=== PATIENT | female | born 1950 | race Caucasian/White ===

== ENCOUNTER 2017-02-09 21:25 | Inpatient (IN) | payer MEDICARE ==
--- NOTE | 2017-02-09 21:43 | ED Physician Chart ---
Chief Complaint/HPI - Patient Information Date Seen:: 02/09/17 Time Seen:: 21:30 Chief Complaint:: EtOH intoxication History of Present Illness:: 66-year-old female brought in by paramedics after a friend called 911 because she was concerned about patient's acute, moderate, alcohol intoxication started about 1 hour prior to arrival to the ER. Patient drank almost a fifth of vodka over the course of the day. Patient has associated slight altered mental status due to the alcohol intoxication. She is alert and oriented 3. Allergies:: Allergies Allergy/AdvReac Type Severity Reaction Status Date / Time No Known Allergies Allergy Verified 02/09/17 21:33 Vitals:: Vital Signs - 8 hr 02/09/17 21:25 Temp 97.8 F HR 80 RR 20 BP 146/77 O2 Sat % 95 Historian:: Patient Review:: Nurse's Note Reviewed, EMS run form Reviewed Review of Systems - Review of Systems Other: Complete system review otherwise unremarkable except as noted in history of present illness. Past Medical History - Past Medical History Past Medical History: HTN Family History: None Social History: Non Smoker, Alcohol, No Drug Use, Employed Surgical History: None Psychiatricy History: Depression Medication: Reviewed Family Medical History - Family Member Mother History Unknown: Yes Physical Exam - Physical Examination Other:: INITIAL VITAL SIGNS: Reviewed by me GENERAL: Alert and interactive. No acute distress. Patient is alert and oriented but seems to be under the influence of alcohol. HEAD: Head is normocephalic and atraumatic EYES: EOMI. PERRL. No scleral icterus. No conjunctival injection ENT: Moist mucous membranes. NECK: Supple. No masses. Full range of motion RESPIRATORY: No tachypnea. Clear breath sounds bilaterally. No wheezing, rales, or rhonchi CV: Regular rate and rhythm. No murmurs, rubs, or gallops ABDOMEN: Soft, non-distended, non-tender. No guarding. No rebound. No masses. EXTREMITIES: No deformity. No cyanosis. No edema. SKIN: Warm and dry. No obvious rashes. NEUROLOGIC: Alert and oriented. Face is symmetric. Speech is normal. Moves all extremities equally. Motor and sensory distally intact. Labs/Radiology/EKG Results - Lab Results Results: Lab Results 02/09/17 02/09/17 Range/Units 21:56 21:56 WBC 6.7 (4.8-10.8) Th/cmm RBC 4.01 (3.80-5.20) Mil/cmm Hgb 12.1 (11.7-16.1) gm/dL Hct 35.4 (35.0-45.0) % MCV 88.4 (81-100) fl MCH 30.2 (27.0-31.0) pg MCHC Differential 34.2 (28.0-36.0) pg RDW 14.2 (11.5-20.0) % Plt Count 230 (150-400) Th/cmm MPV 7.6 fl Neutrophils % 72.5 (40.0-80.0) % Lymphocytes % 20.3 (20.0-50.0) % Monocytes % 5.3 (2.0-10.0) % Eosinophils % 1.4 (0.0-5.0) % Basophils % 0.5 (0.0-2.0) % Sodium 137 (136-145) mEq/L Potassium 4.3 (3.5-5.1) mEq/L Chloride 100 (98-107) mEq/L Carbon Dioxide 29.6 (21.0-31.0) mEq/L Anion Gap 11.7 (7.0-16.0) BUN 14 (7-25) mg/dL Creatinine 0.7 (0.6-1.2) mg/dL Est GFR ( Amer) > 60.0 (>90) ml/min Est GFR (Non-Af Amer) > 60.0 ml/min BUN/Creatinine Ratio 20.0 Glucose 107 H (70-105) mg/dL Calcium 8.9 (8.6-10.3) mg/dL ED Septic Shock - . Is Septic Shock (SBP<90, OR Lactate>4 mmol\L) present?: No - <6hrs of presentation: Vital Signs: Vital Signs - 8 hr 02/09/17 21:25 Temp 97.8 F HR 80 RR 20 BP 146/77 O2 Sat % 95 Reassessment (Disposition) - Reassessment Reassessment:: Patient arrived with acute alcohol intoxication. Labs are essentially unremarkable. Hydrated with IV fluids. Also gave Zofran as prophylaxis for antiemetic. Patient was noted to be ambulating to and from the restroom without any gait abnormality. Stated that she wished to be discharged. Recommended follow up PCP 1-2 days. Return to ER precautions given. Patient understands and agrees with the plan. Reassessment Condition:: Improved - Diagnosis Diagnosis:: Acute alcohol intoxication - Aftercare/Follow up Instructions Aftercare/Follow-Up Instructions:: Counseled pt regarding lab results/diagnosis & need follow up, Refer to Discharge Instructions - Patient Disposition Discharge/Transfer:: Home Time:: 23:56 Condition at Disposition:: Improved ED Discharge Plan - Patient Disposition Admit/Discharge/Transfer: PT DISCHARGED HOME Condition at Disposition: Improved Instructions: Alcohol Intoxication
[2017-02-09] MEDS ORDERED: Sodium Chloride 0.9% 1,000 ML IV ONE (21:45)
[2017-02-09 22:03] LABS: % BASOPHILS 0.5 % (0.0-2.0); % EOSINOPHILS 1.4 % (0.0-5.0); % LYMPHOCYTES 20.3 % (20.0-50.0); % MONOCYTES 5.3 % (2.0-10.0); % NEUTROPHILS 72.5 % (40.0-80.0); HEMATOCRIT 35.4 % (35.0-45.0); HEMOGLOBIN 12.1 gm/dL (11.7-16.1); MEAN CELL VOLUME 88.4 fl (81-100); MEAN CORPUSCULAR HEMOGLOBIN 30.2 pg (27.0-31.0); MEAN CORPUSCULAR HGB CONC 34.2 pg (28.0-36.0); MEAN PLATELET VOLUME 7.6 fl; NEUTROPHILE ABSOLUTE 4.8 Th/cmm (1.8-8.0); PLATELET COUNT 230 Th/cmm (150-400); RED BLOOD COUNT 4.01 Mil/cmm (3.80-5.20); RED CELL DISTRIBUTION WIDTH 14.2 % (11.5-20.0); WHITE BLOOD COUNT 6.7 Th/cmm (4.8-10.8)
[2017-02-09 22:17] LABS: ANION GAP 11.7 (7.0-16.0); BUN - UREA NITROGEN 14 mg/dL (7-25); CALCIUM SERUM 8.9 mg/dL (8.6-10.3); CARBON DIOXIDE 29.6 mEq/L (21.0-31.0); CHLORIDE 100 mEq/L (98-107); CREATININE - SERUM 0.7 mg/dL (0.6-1.2); GLUCOSE 107 mg/dL (70-105); POTASSIUM SERUM 4.3 mEq/L (3.5-5.1); SODIUM SERUM 137 mEq/L (136-145)
[2017-02-09] MEDS ORDERED: D5 IV ONE (23:47)
[2017-02-09] MEDS ORDERED: NS IV ONE (23:47)
[2017-02-10 07:49] LABS: % EOSINOPHILS 3.8 % (0.0-5.0); % LYMPHOCYTES 20.7 % (20.0-50.0); % MONOCYTES 3.2 % (2.0-10.0); % NEUTROPHILS 72.3 % (40.0-80.0); HEMATOCRIT 33.4 % (35.0-45.0); HEMOGLOBIN 11.4 gm/dL (11.7-16.1); MEAN CORPUSCULAR HEMOGLOBIN 30.8 pg (27.0-31.0); MEAN CORPUSCULAR HGB CONC 34.2 pg (28.0-36.0); MEAN PLATELET VOLUME 8.1 fl; NEUTROPHILE ABSOLUTE 5.1 Th/cmm (1.8-8.0); PLATELET COUNT 206 Th/cmm (150-400); RED BLOOD COUNT 3.71 Mil/cmm (3.80-5.20); RED CELL DISTRIBUTION WIDTH 14.7 % (11.5-20.0); WHITE BLOOD COUNT 7.1 Th/cmm (4.8-10.8)
[2017-02-10 08:17] LABS: ALB/GLOB RATIO 1.4 (1.0-1.8); ALKALINE PHOSPHATASE 77 U/L (34-104); ANION GAP 13.2 (7.0-16.0); BILIRUBIN,TOTAL 0.5 mg/dL (0.3-1.0); BUN - UREA NITROGEN 12 mg/dL (7-25); BUN/CREATININE RATIO 17.1; CALCIUM SERUM 8.4 mg/dL (8.6-10.3); CHLORIDE 102 mEq/L (98-107); CREATININE - SERUM 0.7 mg/dL (0.6-1.2); GLUCOSE 103 mg/dL (70-105); POTASSIUM SERUM 4.2 mEq/L (3.5-5.1); SGOT 31 U/L (13-39); SGPT/ALT 17 U/L (7-52); SODIUM SERUM 140 mEq/L (136-145)
[2017-02-10] MEDS ORDERED: Multivitamin Inj 10 ML, Thiamine HCL 100 MG, Magnesium Sulfate 2 GM, Folic Acid 1 MG in... IV ONE (09:00)
[2017-02-10] MEDS ORDERED: Multivitamin Inj 10 ML, Thiamine HCL 100 MG, Magnesium Sulfate 2 GM, Folic Acid 1 MG in... IV SCH (09:31)
[2017-02-10] MEDS ORDERED: VTE Chemical Prophylaxis Screen/Admission MC PRN (12:45)
--- NOTE | 2017-02-10 13:09 | History & Physical ---
ADMIT DATE: 02/10/2017 CHIEF COMPLAINT: Change in mental status. HISTORY OF PRESENT ILLNESS: This is the case of a 66-year-old white female who was brought by paramedics ER via 911 because a friend called 911 secondary to the patient was drunk and not responding well. According to the information, the patient drunk vodka over the course of the day and the patient was ____ altered mental status. Reason why paramedics were called and the patient was brought to Emergency Room. The moment the patient arrived to Emergency Room, labs were normal, the patient was ambulating to the restroom without any gait abnormality. The patient referred that she wants to go home, but after talking with Emergency Room doctor, the patient agrees to stay for observation. The patient was transferred to med/surg to continue treatment. PAST MEDICAL HISTORY: No information available. PAST SURGICAL HISTORY: No information available. SOCIAL HISTORY: Daily patient drinks, but no more information was available. REVIEW OF SYSTEMS: Information was not obtained secondary to the patient's mental condition. PHYSICAL EXAMINATION: GENERAL: Does reveal a fairly nourished and developed white female, responding only to pain. HEENT: Head is normocephalic. Pupils not responding to light and ____. Nose, no evidence of nasal obstruction. Ears: No evidence of any discharge. Mouth: Fairly clean. LUNGS: Bilateral air entry. No wheezing, no crackles. HEART: Regular rhythm. ABDOMEN: Soft, nontender, bowel sound present. EXTREMITIES: No edema. DIAGNOSIS: Acute loss of consciousness. PLAN: 1. The patient will be sent to ICU. 2. Head CT stat. 3. Ammonia level. 4. CT scan stat and Accu-Chek q. 2 hours. 5. Banana bag. 6. Regular diet ____. JOB# [id number]
[2017-02-10 14:11] LABS: AMPHETAMINE URINE NEGATIVE (NEGATIVE); BARBITURATES URINE POSITIVE (NEGATIVE); METHADONE URINE NEGATIVE (NEGATIVE)
[2017-02-11 05:13] LABS: % BASOPHILS 0.4 % (0.0-2.0); % EOSINOPHILS 4.7 % (0.0-5.0); % LYMPHOCYTES 37.8 % (20.0-50.0); % MONOCYTES 7.3 % (2.0-10.0); % NEUTROPHILS 49.8 % (40.0-80.0); HEMATOCRIT 30.6 % (35.0-45.0); HEMOGLOBIN 10.4 gm/dL (11.7-16.1); MEAN CELL VOLUME 88.8 fl (81-100); MEAN CORPUSCULAR HEMOGLOBIN 30.1 pg (27.0-31.0); MEAN CORPUSCULAR HGB CONC 33.9 pg (28.0-36.0); MEAN PLATELET VOLUME 8.3 fl; NEUTROPHILE ABSOLUTE 2.5 Th/cmm (1.8-8.0); PLATELET COUNT 173 Th/cmm (150-400); RED BLOOD COUNT 3.45 Mil/cmm (3.80-5.20); RED CELL DISTRIBUTION WIDTH 14.4 % (11.5-20.0)
[2017-02-11 05:32] LABS: ALB/GLOB RATIO 1.2 (1.0-1.8); ALKALINE PHOSPHATASE 67 U/L (34-104); ANION GAP 6.3 (7.0-16.0); BILIRUBIN,TOTAL 0.4 mg/dL (0.3-1.0); BUN - UREA NITROGEN 12 mg/dL (7-25); CALCIUM SERUM 8.5 mg/dL (8.6-10.3); CARBON DIOXIDE 31.5 mEq/L (21.0-31.0); CHLORIDE 103 mEq/L (98-107); CREATININE - SERUM 0.6 mg/dL (0.6-1.2); GLUCOSE 89 mg/dL (70-105); POTASSIUM SERUM 3.8 mEq/L (3.5-5.1); SGOT 26 U/L (13-39); SGPT/ALT 15 U/L (7-52); SODIUM SERUM 137 mEq/L (136-145)
--- NOTE | 2017-02-11 09:02 | General Progress Note ---
Subjective - Review of Systems Service Date: 02/11/17 Subjective: Patient is confused Objective - Results Result Diagrams: 02/11/17 04:33 02/11/17 04:33 Recent Labs: Laboratory Last Values WBC 5.0 Th/cmm (4.8-10.8) D 02/11/17 04:33 RBC 3.45 Mil/cmm (3.80-5.20) L 02/11/17 04:33 Hgb 10.4 gm/dL (11.7-16.1) L 02/11/17 04:33 Hct 30.6 % (35.0-45.0) L 02/11/17 04:33 MCV 88.8 fl (81-100) 02/11/17 04:33 MCH 30.1 pg (27.0-31.0) 02/11/17 04:33 MCHC Differential 33.9 pg (28.0-36.0) 02/11/17 04:33 RDW 14.4 % (11.5-20.0) 02/11/17 04:33 Plt Count 173 Th/cmm (150-400) 02/11/17 04:33 MPV 8.3 fl 02/11/17 04:33 Neutrophils % 49.8 % (40.0-80.0) 02/11/17 04:33 Lymphocytes % 37.8 % (20.0-50.0) 02/11/17 04:33 Monocytes % 7.3 % (2.0-10.0) 02/11/17 04:33 Eosinophils % 4.7 % (0.0-5.0) 02/11/17 04:33 Basophils % 0.4 % (0.0-2.0) 02/11/17 04:33 Sodium 137 mEq/L (136-145) 02/11/17 04:33 Potassium 3.8 mEq/L (3.5-5.1) 02/11/17 04:33 Chloride 103 mEq/L (98-107) 02/11/17 04:33 Carbon Dioxide 31.5 mEq/L (21.0-31.0) H 02/11/17 04:33 Anion Gap 6.3 (7.0-16.0) L 02/11/17 04:33 BUN 12 mg/dL (7-25) 02/11/17 04:33 Creatinine 0.6 mg/dL (0.6-1.2) 02/11/17 04:33 Est GFR ( Amer) > 60.0 ml/min (>90) 02/11/17 04:33 Est GFR (Non-Af Amer) > 60.0 ml/min 02/11/17 04:33 BUN/Creatinine Ratio 20.0 02/11/17 04:33 Glucose 89 mg/dL (70-105) 02/11/17 04:33 POC Glucose 82 MG/DL (70 - 105) 02/11/17 08:21 Calcium 8.5 mg/dL (8.6-10.3) L 02/11/17 04:33 Total Bilirubin 0.4 mg/dL (0.3-1.0) 02/11/17 04:33 AST 26 U/L (13-39) 02/11/17 04:33 ALT 15 U/L (7-52) 02/11/17 04:33 Alkaline Phosphatase 67 U/L (34-104) 02/11/17 04:33 Ammonia 40 umol/L (16-53) 02/10/17 09:35 Total Protein 5.6 gm/dL (6.0-8.3) L 02/11/17 04:33 Albumin 3.1 gm/dL (3.7-5.3) L 02/11/17 04:33 Globulin 2.5 gm/dL 02/11/17 04:33 Albumin/Globulin Ratio 1.2 (1.0-1.8) 02/11/17 04:33 TSH 1.94 uIU/ml (0.34-5.60) 02/11/17 04:33 Urine Opiates Screen NEGATIVE (NEGATIVE) 02/10/17 13:28 Urine Methadone Screen NEGATIVE (NEGATIVE) 02/10/17 13:28 Ur Barbiturates Screen POSITIVE (NEGATIVE) H 02/10/17 13:28 Ur Tricyclics Screen NEGATIVE (NEGATIVE) 02/10/17 13:28 Ur Phencyclidine Scrn NEGATIVE (NEGATIVE) 02/10/17 13:28 Amphetamines Screen NEGATIVE (NEGATIVE) 02/10/17 13:28 U Methamphetamines Scrn NEGATIVE (NEGATIVE) 02/10/17 13:28 U Benzodiazepines Scrn POSITIVE (NEGATIVE) H 02/10/17 13:28 U Cocaine Metab Screen NEGATIVE (NEGATIVE) 02/10/17 13:28 U Cannabinoids Screen NEGATIVE (NEGATIVE) 02/10/17 13:28 Ethyl Alcohol < 10 mg/dL (0-10) 02/10/17 07:25 - Physical Exam Vitals and I&O: Vital Signs Temp 96.9 F 02/11/17 08:00 Pulse 53 02/11/17 08:00 Resp 17 02/11/17 08:00 BP 117/67 02/11/17 08:00 Pulse Ox 95 02/11/17 08:00 Intake & Output 02/10/17 02/11/17 02/11/17 18:59 06:59 18:59 Intake Total 1115.2 Output Total 250 Balance -250 1115.2 Intake: Intake, IV Amount 1015.2 Oral 100 Output: Urine 250 Other: # Voids 1 # Bowel Movements 1 Active Medications: Current Medications Acetaminophen (Tylenol) 650 mg PO Q6H PRN PRN Reason: Pain or Fever >101 Stop: 04/11/17 09:42 Last Admin: 02/10/17 21:13 Dose: 650 mg Heparin Sodium (Porcine) (Heparin) 5,000 units SUBQ Q12HR DOC Stop: 04/11/17 20:59 Last Admin: 02/11/17 08:16 Dose: 5,000 units Insulin Aspart (Novolog Insulin Sliding Scale) 0 units SUBQ ACHS DOC PRN Reason: Protocol Stop: 04/12/17 11:29 Lorazepam (Ativan) 1 mg IVP Q8HR PRN; Protocol PRN Reason: Anxiety Stop: 04/11/17 07:23 Miscellaneous (Vte Chemical Prophylaxis Screen/ Admission) 1 ea MC PRN PRN PRN Reason: PROTOCOL Stop: 04/11/17 12:44 Ondansetron HCl (Zofran) 4 mg IV Q6H PRN PRN Reason: Nausea / Vomiting Stop: 04/11/17 09:42 General: Other (Sleeping but arousable, is confused, not oriented ) HEENT: Atraumatic, Other (With CPAP) Neck: Supple Cardiovascular: Regular rate Lungs: Clear to auscultation Abdomen: Bowel sounds, Soft Extremities: Other (No edema) Neurological: Other (Non ambulatory at this moment) Skin: Other (Warm and dry) Psych/Mental Status: Other (Sleeping but arousable) Assessment/Plan - Assessment Assessment: Patient is hard to wake up, on CPAP, Positive for barbituric and amphetamines, Head CT shows atrophy, no acute illness. Dx: Acute respiratory failure secondary to drugs intoxication. - Plan Plan: Patient in CPAP, consult with Pulmonoloogy is requested. Will continue to monitor.
[2017-02-11] MEDS: D5-0.9%NS 1,000 ML IV SCH (09:16)
[2017-02-11 10:27] LABS: ABG SOURCE Arterial; ALLEN TEST Positive; BE(B) 7.5 mEq/L (-3.0-3.0); HCO3 30.7 mEq/L (20.0-26.0); pH 7.41 (7.35-7.45)
[2017-02-11 10:28] LABS: FIO2 32
--- NOTE | 2017-02-11 11:09 | Diagnostic Imaging Report ---
CT scan of the brain without intravenous contrast HISTORY: Stroke, CVA Total DLP equals 585 CTDI equals 34.6 Axial sections were obtained from the base of the skull to the vertex. There is prominence/enlargement of the ventricular system size. Associated enlargement of cerebral sulci and subarachnoid cisterns. Findings are consistent with changes of generalized cerebral atrophy. No acute parenchymal abnormalities. No acute cerebral hemorrhage. Hypodensity is seen within the supratentorial white matter regions without mass effect. The findings may be associated with chronic small vessel ischemic disease. No extra-axial masses or abnormal fluid collections. Mild mucosal thickening noted within the sphenoid sinuses. IMPRESSION: 1. No acute abnormalities 2. Cerebral atrophy 3. Supratentorial white matter changes that may reflect chronic small vessel ischemic disease
--- NOTE | 2017-02-11 11:09 | Diagnostic Imaging Report ---
Portable chest x-ray HISTORY: Shortness of breath The heart appears enlarged. Atherosclerotic calcification seen in the aorta. No acute focal pulmonary processes. IMPRESSION: 1. No acute focal pulmonary processes 2. Cardiomegaly with atherosclerotic vascular changes
[2017-02-11] MEDS: INSULIN ASPART SLIDING SCALE 100 UNITS/ML UNIT SUBQ SCH ×3 (11:26→22:54)
[2017-02-11] MEDS: Thiamine 100 mg/mL 2mL Vial IM SCH (13:17)
--- NOTE | 2017-02-11 13:46 | Admit Criteria Form ---
Admit Criteria Forms - Admit Criteria Diagnosis: SUBSTANCE ABUSE Clinical Indications for Admission to Inpatient Care (Place 'X' for any and all applicable criteria): Admission is indicated due to ANY ONE of the following(1)(2)(3)(4)(5): [ ]I. Delirium due to alcohol or sedative A withdrawal B ( Also use Delirium Criteria as appropriate)1,6,7 [ ]II. Alcohol or sedative withdrawal with high-risk indicator as manifested by ALL of the following1,3,6,7 [ ]a) Signs of withdrawal as indicated by ANY ONE of the following: [ ]i) Heart rate greater than 100 beats per minute [ ]ii) Nausea or vomiting [ ]iii) Other physical signs of alcohol or sedative withdrawal [ ]iv) Tremor [ ](v) Increased perspiration [ ]b) Elevated risk due to a historical or comorbid factor as indicated by ANY ONE of the following: [ ]i) History of delirium due to alcohol or sedative withdrawal [ ]ii) History of repetitive seizures due to alcohol or sedative withdrawal C [ ]iii) Intrinsic seizure disorder (epilepsy) [ ]iv) [ ]v) Comorbid medical condition that can be dangerously destabilized by alcohol or sedative withdrawal (eg, severe cardiac disease) [ ]III. Severe alcohol or sedative withdrawal that is unmanageable at lower level of care, as manifested by ALL of the following1,3,6,7 [ ]a) Marked signs of withdrawal as indicated by ANY ONE of the following: [ ]i) Heart rate greater than 120 beats per minute [ ]ii) Vomiting [ ]iii) Grossly visible tremor [ ]iv) Profuse perspiration [ ]v) Temperature greater than 38.3 degrees C (101 degrees F) [ ]vi) Other marked physical signs of alcohol or sedative withdrawal [ ]b) Signs of withdrawal which require inpatient treatment as indicated by ANY ONE of the following: [ ]i) Inadequate response to pharmacotherapy in emergency department or other appropriate lower level of care [ ]ii) Lower level of care not feasible or appropriate (eg, unavailable or inappropriate to patient condition or treatment history) [ ]IV. Severely complicated opioid withdrawal that requires [id number] care as manifested by ALL of the following 1,4,7,11 [ ]a) Vomiting or diarrhea due to opioid withdrawal [ ]b) Marked dehydration or electrolyte abnormality that cannot be corrected (to near normal) in an emergency department or other ambulatory setting (eg, serum K<2.5 mEq/L , serum Na <130 mEq/L [X ]V. Acute toxicity or instability from substance use requiring inpatient care (eg, altered mental status, respiratory depression) that has had inadequate response to, or is judged inappropriate for, treatment at lower level of care (eg, emergency department, observation care) [ ]. Other inpatient medical or psychiatric care is needed due to risk or comorbidity as indicated by ALL of the following(18): [ ]a) Treatment is needed because of patient risk due to ANY ONE of the following: [ ]i) Medical condition (eg, severe cardiac disease) that requires 24-hour monitoring and treatment due to danger of destabilization by alcohol or sedative withdrawal is present [ ]ii) Imminent danger to self is present due to ANY ONE of the following(19)(20)(21): [ ]1) Imminent risk for recurrence of Suicide attempt or act of serious Harm to self is present as indicated by ALL of the following: [ ]A. There has been very recent Suicide attempt or deliberate act of serious Harm to self. [ ]B. There has not been Sufficient relief of the factors that precipitated the attempt or act. [ ]2) Current plan for suicide or serious Harm to self is present. [ ]3) Command auditory hallucinations for suicide or serious Harm to self are present. [ ]4) Patient has persistent Thoughts of suicide or serious Harm to self that cannot be adequately monitored at lower level of care due to ANY ONE of the following[E]: [ ]A. Insufficient behavioral care is available to meet patient needs (such as required provider or lower level facility is not available). [ ]B. Patient characteristics such as high impulsivity or unreliability are present. [ ]C. Environment does not support recovery. [ ]D. Ready access to lethal means [ ]iii) Imminent danger to others is present due to ANY ONE of the following(19)(23)(24): [ ]1) Imminent risk for recurrence of attempt to seriously Harm another is present as indicated by ALL of the following: [ ]A. There has been very recent attempt to seriously Harm another. [ ]B. There has not been Sufficient relief of factors that precipitated the attempt or act. [ ]2) Current plan for homicide or serious Harm to another is present. [ ]3) Command auditory hallucinations or paranoid delusions contributing to risk for homicide or serious Harm to another are present. [ ]4) Patient has persistent thoughts of homicide or serious Harm to another that cannot be adequately monitored at lower level of care because of ANY ONE of the following[E]: [ ]A. Insufficient behavioral care is available to meet patient needs (such as required provider or lower level facility is not available). [ ]B. High impulsivity or unreliability is present. [ ]C. Environment does not support recovery. [ ]D. Ready access to lethal means [ ]iv) Severe dysfunction in daily living related to substance use disorder as indicated by ANY ONE of the following(33): [ ]a) Extreme deterioration in social interactions (eg , threatening behaviors with little or no provocation) [ ]b) Complete withdrawal from all social interactions [ ]c) Complete neglect of self-care with associated impairment in physical status [ ]d) Extreme disruption in vegetative function (eg, life-sustaining functions such as eating) [ ]e) Complete inability to maintain any appropriate aspect of personal responsibility in any adult roles (eg, occupational, parental ) [ ]v) Other emotional, behavioral, or cognitive symptoms of sufficient severity to preclude ability to engage in recovery without 24-hour monitoring and treatment are present. [ ]vi) Patient requires monitoring due to substance use in combination with medical, psychiatric, or environmental factors that prevent adequate management at lower level of care as indicated by ALL of the following: [ ]1) Significant substance use effects, medical conditions, or psychiatric comorbidities are present as indicated by ANY ONE of the following [ ]A. Substance toxicity or withdrawal requires medical monitoring. [ ]B. Medical comorbidity requires medical monitoring for destabilization due to alcohol or sedative withdrawal. [ ]C. Emotional, behavioral, or cognitive symptoms of sufficient severity to limit or preclude ability to engage in treatment are present. [ ]2) Conditions, barriers, or environmental factors preventing treatment at lower level of care are present as indicated by ANY ONE of the following: [ ]A. Psychiatric comorbidity or opposition to treatment requires 24-hour setting to ensure adherence with medical treatment or adequate motivating interventions. [ ]B. Severe behavioral problems (eg, escalating relapse behaviors, acute psychiatric or substance use crisis, inability to recognize signs and symptoms of relapse ) require 24-hour setting for relapse prevention.[F] [ ]C. Living environment outside of 24-hour setting prevents recovery (eg, abuse, victimization, patient inability to cope). [ ]b Treatment situation and needs are appropriate for inpatient level ( instead of using lower level of care) as indicated by ANY ONE of the following( 25)(26)(27): [ ]i) Patient is unwilling to participate voluntarily and requires treatment (eg, legal commitment) in involuntary unit.(23) [ ]ii) Voluntary treatment at lower level is not feasible (eg, lower level care unavailable or inappropriate for patient condition). [ ]iii) Physical restraint, seclusion, or other involuntary control is needed (eg, actively violent patient for whom treatment in an involuntary unit is deemed necessary in accord with applicable medical and legal criteria).(23) [ ]iv) [id number] medical or nursing care to address symptoms and initiate interventions is required; specific need is identified. Extended stay beyond goal length of stay may be needed for: [ ]a) Onset of delirium [ ]b) Recurrent seizures [ ]c) Persistent severe alcohol or sedative withdrawal [ ]d) Persistent dangerous behavior The original [facility] content created by [email or web address] has been revised. The portions of the content which have been revised are identified through the use of italic text or in bold, and [facility] has neither reviewed nor approved the modified material. All other unmodified content is copyright [employer]. Please see references footnoted in the original [employer] [facility] edition 2016 Admit Criteria Met?: Yes
[2017-02-11] MEDS: Albuterol/Ipratropium Neb 3 ML AERS HHN SCH (19:04)
[2017-02-12] MEDS: Albuterol/Ipratropium Neb 3 ML AERS HHN SCH ×5 (00:58→19:13)
[2017-02-12] MEDS: D5-0.9%NS 1,000 ML IV SCH ×2 (03:21→18:53)
[2017-02-12] MEDS: INSULIN ASPART SLIDING SCALE 100 UNITS/ML UNIT SUBQ SCH ×4 (06:53→21:36)
[2017-02-12 07:16] LABS: % BASOPHILS 0.1 % (0.0-2.0); % EOSINOPHILS 4.4 % (0.0-5.0); % LYMPHOCYTES 21.8 % (20.0-50.0); % MONOCYTES 5.4 % (2.0-10.0); % NEUTROPHILS 68.3 % (40.0-80.0); HEMOGLOBIN 10.4 gm/dL (11.7-16.1); MEAN CELL VOLUME 90.3 fl (81-100); MEAN CORPUSCULAR HEMOGLOBIN 30.2 pg (27.0-31.0); MEAN CORPUSCULAR HGB CONC 33.4 pg (28.0-36.0); MEAN PLATELET VOLUME 8.3 fl; NEUTROPHILE ABSOLUTE 3.2 Th/cmm (1.8-8.0); PLATELET COUNT 181 Th/cmm (150-400); RED BLOOD COUNT 3.44 Mil/cmm (3.80-5.20); RED CELL DISTRIBUTION WIDTH 14.7 % (11.5-20.0); WHITE BLOOD COUNT 4.6 Th/cmm (4.8-10.8)
[2017-02-12 07:32] LABS: ALB/GLOB RATIO 1.3 (1.0-1.8); ALKALINE PHOSPHATASE 65 U/L (34-104); ANION GAP 10.5 (7.0-16.0); BILIRUBIN,TOTAL 0.4 mg/dL (0.3-1.0); BUN - UREA NITROGEN 8 mg/dL (7-25); BUN/CREATININE RATIO 13.3; CALCIUM SERUM 8.7 mg/dL (8.6-10.3); CARBON DIOXIDE 30.1 mEq/L (21.0-31.0); CHLORIDE 102 mEq/L (98-107); CREATININE - SERUM 0.6 mg/dL (0.6-1.2); GLUCOSE 114 mg/dL (70-105); POTASSIUM SERUM 3.6 mEq/L (3.5-5.1); SGOT 28 U/L (13-39); SGPT/ALT 15 U/L (7-52); SODIUM SERUM 139 mEq/L (136-145)
--- NOTE | 2017-02-12 09:10 | General Progress Note ---
Subjective - Review of Systems Service Date: 02/12/17 Subjective: Patient is confused Objective - Results Result Diagrams: 02/12/17 06:40 02/12/17 06:40 Recent Labs: Laboratory Last Values WBC 4.6 Th/cmm (4.8-10.8) L 02/12/17 06:40 RBC 3.44 Mil/cmm (3.80-5.20) L 02/12/17 06:40 Hgb 10.4 gm/dL (11.7-16.1) L 02/12/17 06:40 Hct 31.0 % (35.0-45.0) L 02/12/17 06:40 MCV 90.3 fl (81-100) 02/12/17 06:40 MCH 30.2 pg (27.0-31.0) 02/12/17 06:40 MCHC Differential 33.4 pg (28.0-36.0) 02/12/17 06:40 RDW 14.7 % (11.5-20.0) 02/12/17 06:40 Plt Count 181 Th/cmm (150-400) 02/12/17 06:40 MPV 8.3 fl 02/12/17 06:40 Neutrophils % 68.3 % (40.0-80.0) 02/12/17 06:40 Lymphocytes % 21.8 % (20.0-50.0) 02/12/17 06:40 Monocytes % 5.4 % (2.0-10.0) 02/12/17 06:40 Eosinophils % 4.4 % (0.0-5.0) 02/12/17 06:40 Basophils % 0.1 % (0.0-2.0) 02/12/17 06:40 Specimen Source Arterial 02/11/17 10:04 Sample Site Left Radial 02/11/17 10:04 pH 7.41 (7.35-7.45) 02/11/17 10:04 pCO2 53.0 mmHg (35.0-45.0) H 02/11/17 10:04 pO2 63.0 mmHg (80.0-100.0) L 02/11/17 10:04 HCO3 30.7 mEq/L (20.0-26.0) H 02/11/17 10:04 Base Excess 7.5 mEq/L (-3.0-3.0) H 02/11/17 10:04 O2 Saturation 92.0 % (92.0-100.0) 02/11/17 10:04 Ismael Test Positive 02/11/17 10:04 Vent Rate NA 02/11/17 10:04 Inspired O2 32 02/11/17 10:04 Tidal Volume NA 02/11/17 10:04 PEEP NA 02/11/17 10:04 Pressure (ins/psv/peep) NA 02/11/17 10:04 Critical Value LZHANG 02/11/17 10:04 Sodium 139 mEq/L (136-145) 02/12/17 06:40 Potassium 3.6 mEq/L (3.5-5.1) 02/12/17 06:40 Chloride 102 mEq/L (98-107) 02/12/17 06:40 Carbon Dioxide 30.1 mEq/L (21.0-31.0) 02/12/17 06:40 Anion Gap 10.5 (7.0-16.0) 02/12/17 06:40 BUN 8 mg/dL (7-25) 02/12/17 06:40 Creatinine 0.6 mg/dL (0.6-1.2) 02/12/17 06:40 Est GFR ( Amer) > 60.0 ml/min (>90) 02/12/17 06:40 Est GFR (Non-Af Amer) > 60.0 ml/min 02/12/17 06:40 BUN/Creatinine Ratio 13.3 02/12/17 06:40 Glucose 114 mg/dL (70-105) H 02/12/17 06:40 POC Glucose 113 MG/DL (70 - 105) H 02/12/17 06:07 Calcium 8.7 mg/dL (8.6-10.3) 02/12/17 06:40 Total Bilirubin 0.4 mg/dL (0.3-1.0) 02/12/17 06:40 AST 28 U/L (13-39) 02/12/17 06:40 ALT 15 U/L (7-52) 02/12/17 06:40 Alkaline Phosphatase 65 U/L (34-104) 02/12/17 06:40 Ammonia 40 umol/L (16-53) 02/10/17 09:35 Total Protein 5.9 gm/dL (6.0-8.3) L 02/12/17 06:40 Albumin 3.3 gm/dL (3.7-5.3) L 02/12/17 06:40 Globulin 2.6 gm/dL 02/12/17 06:40 Albumin/Globulin Ratio 1.3 (1.0-1.8) 02/12/17 06:40 TSH 1.94 uIU/ml (0.34-5.60) 02/11/17 04:33 Urine Opiates Screen NEGATIVE (NEGATIVE) 02/10/17 13:28 Urine Methadone Screen NEGATIVE (NEGATIVE) 02/10/17 13:28 Ur Barbiturates Screen POSITIVE (NEGATIVE) H 02/10/17 13:28 Ur Tricyclics Screen NEGATIVE (NEGATIVE) 02/10/17 13:28 Ur Phencyclidine Scrn NEGATIVE (NEGATIVE) 02/10/17 13:28 Amphetamines Screen NEGATIVE (NEGATIVE) 02/10/17 13:28 U Methamphetamines Scrn NEGATIVE (NEGATIVE) 02/10/17 13:28 U Benzodiazepines Scrn POSITIVE (NEGATIVE) H 02/10/17 13:28 U Cocaine Metab Screen NEGATIVE (NEGATIVE) 02/10/17 13:28 U Cannabinoids Screen NEGATIVE (NEGATIVE) 02/10/17 13:28 Ethyl Alcohol < 10 mg/dL (0-10) 02/10/17 07:25 - Physical Exam Vitals and I&O: Vital Signs Temp 98.2 F 02/12/17 06:40 Pulse 78 02/12/17 06:40 Resp 18 02/12/17 06:40 BP 145/78 02/12/17 06:40 Pulse Ox 96 02/12/17 05:36 Intake & Output 02/11/17 02/12/17 02/12/17 18:59 06:59 18:59 Intake Total 350 1260 Output Total 0 Balance 350 1260 Intake: Intake, IV Amount 1000 D5-0.9%Ns 1,000 ml @ 75 1000 mls/hr IV .[id number] [facility] Rx #:[id number] Oral 350 260 Output: Stool 0 Other: # Voids 3 4 # Bowel Movements 1 Stool Characteristics Soft Formed Brown Active Medications: Current Medications Acetaminophen (Tylenol) 650 mg PO Q6H PRN PRN Reason: Pain or Fever >101 Stop: 04/11/17 09:42 Last Admin: 02/11/17 10:09 Dose: 650 mg Albuterol/Ipratropium (Duoneb Neb) 3 ml HHN Q6HRT [facility] Stop: 04/12/17 18:59 Last Admin: 02/12/17 07:57 Dose: 3 ml Heparin Sodium (Porcine) (Heparin) 5,000 units SUBQ Q12HR DOC Stop: 04/11/17 20:59 Last Admin: 02/12/17 08:31 Dose: 5,000 units Dextrose/Sodium Chloride (D5-0.9%Ns) 1,000 mls @ 75 mls/hr IV .[id number] [facility] Stop: 04/12/17 09:03 Last Admin: 02/12/17 03:21 Dose: 75 mls/hr Insulin Aspart (Novolog Insulin Sliding Scale) 0 units SUBQ ACHS DOC PRN Reason: Protocol Stop: 04/12/17 11:29 Last Admin: 02/12/17 06:53 Dose: Not Given Lorazepam (Ativan) 1 mg IVP Q6HR PRN; Protocol PRN Reason: Agitation Stop: 04/12/17 22:19 Last Admin: 02/12/17 06:05 Dose: 1 mg Miscellaneous (Vte Chemical Prophylaxis Screen/ Admission) 1 ea [facility] PRN PRN PRN Reason: PROTOCOL Stop: 04/11/17 12:44 Ondansetron HCl (Zofran) 4 mg IV Q6H PRN PRN Reason: Nausea / Vomiting Stop: 04/11/17 09:42 Quetiapine Fumarate (Seroquel) 25 mg PO HS [facility] PRN Reason: Protocol Stop: 04/12/17 20:59 Last Admin: 02/12/17 06:50 Dose: Not Given Thiamine HCl (Vitamin B1) 100 mg IM DAILY [facility] Stop: 04/12/17 11:44 Last Admin: 02/11/17 13:17 Dose: 100 mg General: Other (Sleeping but arousable, confused) HEENT: Atraumatic Neck: Supple Cardiovascular: Regular rate Abdomen: Bowel sounds Extremities: Other (No edema) Neurological: Other (Non ambulatory at this moment) Skin: Other (Warm and dry) Psych/Mental Status: Other (Hard to wake up, when she wake up she is inchoerent. ) - Procedures Procedures: Procedures Procedure Code Date ASSISTANCE WITH RESPIRATORY VENTILATION, <24 HRS, CPAP [id number] 02/10/17 POS AIRWAY PRESSURE CPAP 82114 02/10/17 Assessment/Plan - Assessment Assessment: Patient is hard to wake up, when she wake up is confused. Positive for barbituric and amphetamines, Head CT shows atrophy, no acute illness. Dx: Acute respiratory failure secondary to drugs intoxication. - Plan Plan: Patient in nasal O2. already seen by Pulmonoloogy. Awaiting psychiatric consultation. Per nurse report patient has been agitated. Will continue to monitor.
[2017-02-12] MEDS: Thiamine 100 mg/mL 2mL Vial IM SCH (09:14)
--- NOTE | 2017-02-12 13:58 | Consultation ---
DATE OF CONSULTATION: 02/11/2017 Thank you very much, Dr. Maradiaga for this consultation. HISTORY OF PRESENT ILLNESS: This is a 66-year-old female who apparently was brought in because of altered level of consciousness. Apparently, the patient was drinking heavily alcohol and was altered and placed on the BiPAP. This morning, she is more awake, responsive and was taken off the BiPAP and nasal cannula. She denies any shortness of breath. She denies any history of lung problems. SOCIAL HISTORY: History of smoking, quit 30 years ago, history of drinking obviously. REVIEW OF SYSTEMS: GENERAL: Some weakness and fatigue. CARDIOVASCULAR: No chest pain. RESPIRATORY: No shortness of breath. GASTROINTESTINAL: Nausea or vomiting. PHYSICAL EXAMINATION: GENERAL: Awake, alert, not in acute distress. VITAL SIGNS: Temperature 97.6, pulse 74, respiration 18, blood pressure 130/65, saturation is 94%. HEENT: Atraumatic, normocephalic. Pupils are reactive to light and accommodation. Ears, nose and throat normal. NECK: Supple. CHEST: There are good breath sounds bilaterally. No wheezing or crackles. HEART: Regular rate and rhythm. ABDOMEN: Soft. EXTREMITIES: No edema. LABORATORY DATA: WBC is 5.0, hemoglobin 10.4, hematocrit 30.6. ABGs, pH 7.41, pCO2 53, pO2 of 63, bicarbonate 30 and saturation 92%. Sodium 137, potassium 3.8, BUN 12, creatinine 0.6. Urine drug screen was positive for barbiturate and benzodiazepine. Ammonia level was 40. IMPRESSION: This is a 66-year-old female status post alcohol intoxication in addition to some other drug use with altered level of consciousness, possible underlying airway disease and obstructive sleep apnea syndrome. PLAN: 1. BiPAP at night and p.r.n. 2. Avoid sedatives. 3. IV fluids. 4. Nebulizer treatment. JOB# [id number] [facility]
[2017-02-13] MEDS: Albuterol/Ipratropium Neb 3 ML AERS HHN SCH ×4 (00:47→18:59)
[2017-02-13 05:24] LABS: RED CELL DISTRIBUTION WIDTH 15.1 % (11.5-20.0); WHITE BLOOD COUNT 4.8 Th/cmm (4.8-10.8)
[2017-02-13 05:27] LABS: % BASOPHILS 0.4 % (0.0-2.0); % EOSINOPHILS 4.9 % (0.0-5.0); % LYMPHOCYTES 25.2 % (20.0-50.0); % MONOCYTES 7.8 % (2.0-10.0); % NEUTROPHILS 61.7 % (40.0-80.0); HEMATOCRIT 31.9 % (35.0-45.0); HEMOGLOBIN 10.6 gm/dL (11.7-16.1); MEAN CELL VOLUME 89.4 fl (81-100); MEAN CORPUSCULAR HEMOGLOBIN 29.6 pg (27.0-31.0); MEAN CORPUSCULAR HGB CONC 33.1 pg (28.0-36.0); PLATELET COUNT 178 Th/cmm (150-400); RED BLOOD COUNT 3.57 Mil/cmm (3.80-5.20)
[2017-02-13 06:32] LABS: ALB/GLOB RATIO 1.3 (1.0-1.8); ALKALINE PHOSPHATASE 63 U/L (34-104); ANION GAP 7.2 (7.0-16.0); BILIRUBIN,TOTAL 0.3 mg/dL (0.3-1.0); BUN - UREA NITROGEN 7 mg/dL (7-25); BUN/CREATININE RATIO 11.7; CALCIUM SERUM 8.9 mg/dL (8.6-10.3); CARBON DIOXIDE 31.6 mEq/L (21.0-31.0); CHLORIDE 105 mEq/L (98-107); CREATININE - SERUM 0.6 mg/dL (0.6-1.2); GLUCOSE 109 mg/dL (70-105); POTASSIUM SERUM 3.8 mEq/L (3.5-5.1); SGOT 22 U/L (13-39); SGPT/ALT 13 U/L (7-52); SODIUM SERUM 140 mEq/L (136-145)
[2017-02-13] MEDS: INSULIN ASPART SLIDING SCALE 100 UNITS/ML UNIT SUBQ SCH ×4 (06:54→20:45)
--- NOTE | 2017-02-13 08:51 | General Progress Note ---
Subjective - Review of Systems Service Date: 02/13/17 Subjective: I want go home Objective - Results Result Diagrams: 02/13/17 05:15 02/13/17 05:15 Recent Labs: Laboratory Last Values WBC 4.8 Th/cmm (4.8-10.8) 02/13/17 05:15 RBC 3.57 Mil/cmm (3.80-5.20) L 02/13/17 05:15 Hgb 10.6 gm/dL (11.7-16.1) L 02/13/17 05:15 Hct 31.9 % (35.0-45.0) L 02/13/17 05:15 MCV 89.4 fl (81-100) 02/13/17 05:15 MCH 29.6 pg (27.0-31.0) 02/13/17 05:15 MCHC Differential 33.1 pg (28.0-36.0) 02/13/17 05:15 RDW 15.1 % (11.5-20.0) 02/13/17 05:15 Plt Count 178 Th/cmm (150-400) 02/13/17 05:15 MPV 8.0 fl 02/13/17 05:15 Neutrophils % 61.7 % (40.0-80.0) 02/13/17 05:15 Lymphocytes % 25.2 % (20.0-50.0) 02/13/17 05:15 Monocytes % 7.8 % (2.0-10.0) 02/13/17 05:15 Eosinophils % 4.9 % (0.0-5.0) 02/13/17 05:15 Basophils % 0.4 % (0.0-2.0) 02/13/17 05:15 Specimen Source Arterial 02/11/17 10:04 Sample Site Left Radial 02/11/17 10:04 pH 7.41 (7.35-7.45) 02/11/17 10:04 pCO2 53.0 mmHg (35.0-45.0) H 02/11/17 10:04 pO2 63.0 mmHg (80.0-100.0) L 02/11/17 10:04 HCO3 30.7 mEq/L (20.0-26.0) H 02/11/17 10:04 Base Excess 7.5 mEq/L (-3.0-3.0) H 02/11/17 10:04 O2 Saturation 92.0 % (92.0-100.0) 02/11/17 10:04 Ismael Test Positive 02/11/17 10:04 Vent Rate NA 02/11/17 10:04 Inspired O2 32 02/11/17 10:04 Tidal Volume NA 02/11/17 10:04 PEEP NA 02/11/17 10:04 Pressure (ins/psv/peep) NA 02/11/17 10:04 Critical Value LZHANG 02/11/17 10:04 Sodium 140 mEq/L (136-145) 02/13/17 05:15 Potassium 3.8 mEq/L (3.5-5.1) 02/13/17 05:15 Chloride 105 mEq/L (98-107) 02/13/17 05:15 Carbon Dioxide 31.6 mEq/L (21.0-31.0) H 02/13/17 05:15 Anion Gap 7.2 (7.0-16.0) 02/13/17 05:15 BUN 7 mg/dL (7-25) 02/13/17 05:15 Creatinine 0.6 mg/dL (0.6-1.2) 02/13/17 05:15 Est GFR ( Amer) > 60.0 ml/min (>90) 02/13/17 05:15 Est GFR (Non-Af Amer) > 60.0 ml/min 02/13/17 05:15 BUN/Creatinine Ratio 11.7 02/13/17 05:15 Glucose 109 mg/dL (70-105) H 02/13/17 05:15 POC Glucose 92 MG/DL (70 - 105) 02/13/17 06:52 Calcium 8.9 mg/dL (8.6-10.3) 02/13/17 05:15 Total Bilirubin 0.3 mg/dL (0.3-1.0) 02/13/17 05:15 AST 22 U/L (13-39) 02/13/17 05:15 ALT 13 U/L (7-52) 02/13/17 05:15 Alkaline Phosphatase 63 U/L (34-104) 02/13/17 05:15 Ammonia 40 umol/L (16-53) 02/10/17 09:35 Total Protein 6.0 gm/dL (6.0-8.3) 02/13/17 05:15 Albumin 3.4 gm/dL (3.7-5.3) L 02/13/17 05:15 Globulin 2.6 gm/dL 02/13/17 05:15 Albumin/Globulin Ratio 1.3 (1.0-1.8) 02/13/17 05:15 TSH 1.94 uIU/ml (0.34-5.60) 02/11/17 04:33 Urine Opiates Screen NEGATIVE (NEGATIVE) 02/10/17 13:28 Urine Methadone Screen NEGATIVE (NEGATIVE) 02/10/17 13:28 Ur Barbiturates Screen POSITIVE (NEGATIVE) H 02/10/17 13:28 Ur Tricyclics Screen NEGATIVE (NEGATIVE) 02/10/17 13:28 Ur Phencyclidine Scrn NEGATIVE (NEGATIVE) 02/10/17 13:28 Amphetamines Screen NEGATIVE (NEGATIVE) 02/10/17 13:28 U Methamphetamines Scrn NEGATIVE (NEGATIVE) 02/10/17 13:28 U Benzodiazepines Scrn POSITIVE (NEGATIVE) H 02/10/17 13:28 U Cocaine Metab Screen NEGATIVE (NEGATIVE) 02/10/17 13:28 U Cannabinoids Screen NEGATIVE (NEGATIVE) 02/10/17 13:28 Ethyl Alcohol < 10 mg/dL (0-10) 02/10/17 07:25 - Physical Exam Vitals and I&O: Vital Signs Temp 96.9 F 02/13/17 07:48 Pulse 79 02/13/17 07:48 Resp 18 02/13/17 07:48 BP 144/77 02/13/17 07:48 Pulse Ox 96 02/13/17 07:48 Intake & Output 02/12/17 02/13/17 02/13/17 18:59 06:59 18:59 Intake Total 1200 Balance 1200 Intake: Intake, IV Amount 1000 D5-0.9%Ns 1,000 ml @ 75 1000 mls/hr IV .[id number] [facility] Rx #:[id number] Oral 200 Other: # Voids 5 2 Active Medications: Current Medications Acetaminophen (Tylenol) 650 mg PO Q6H PRN PRN Reason: Pain or Fever >101 Stop: 04/11/17 09:42 Last Admin: 02/11/17 10:09 Dose: 650 mg Albuterol/Ipratropium (Duoneb Neb) 3 ml HHN Q6HRT [facility] Stop: 04/12/17 18:59 Last Admin: 02/13/17 07:16 Dose: 3 ml Heparin Sodium (Porcine) (Heparin) 5,000 units SUBQ Q12HR [facility] Stop: 04/11/17 20:59 Last Admin: 02/12/17 21:28 Dose: 5,000 units Dextrose/Sodium Chloride (D5-0.9%Ns) 1,000 mls @ 75 mls/hr IV .[id number] [facility] Stop: 04/12/17 09:03 Last Admin: 02/12/17 18:53 Dose: 75 mls/hr Insulin Aspart (Novolog Insulin Sliding Scale) 0 units SUBQ ACHS [facility] PRN Reason: Protocol Stop: 04/12/17 11:29 Last Admin: 02/13/17 06:54 Dose: Not Given Lorazepam (Ativan) 1 mg IVP Q6HR PRN; Protocol PRN Reason: Agitation Stop: 04/12/17 22:19 Last Admin: 02/12/17 06:05 Dose: 1 mg Miscellaneous (Vte Chemical Prophylaxis Screen/ Admission) 1 ea [facility] PRN PRN PRN Reason: PROTOCOL Stop: 04/11/17 12:44 Ondansetron HCl (Zofran) 4 mg IV Q6H PRN PRN Reason: Nausea / Vomiting Stop: 04/11/17 09:42 Quetiapine Fumarate (Seroquel) 25 mg PO HS [facility] PRN Reason: Protocol Stop: 04/12/17 20:59 Last Admin: 02/12/17 21:57 Dose: 25 mg Thiamine HCl (Vitamin B1) 100 mg IM DAILY [facility] Stop: 04/12/17 11:44 Last Admin: 02/12/17 09:14 Dose: 100 mg General: Alert, Cooperative, No acute distress, Moderate distress Neck: Supple Cardiovascular: Regular rate Lungs: Clear to auscultation Abdomen: Bowel sounds Extremities: Other (No edema) Neurological: Other (Unstable gait) Skin: Other (Warm and dry) Psych/Mental Status: Other (Awake, alert, calm oriented, answering question. ) - Procedures Procedures: Procedures Procedure Code Date ASSISTANCE WITH RESPIRATORY VENTILATION, <24 HRS, CPAP [id number] 02/10/17 POS AIRWAY PRESSURE CPAP [id number] 02/10/17 Assessment/Plan - Assessment Assessment: Patient is awake, alert, calm, in no acute distress. Positive for barbituric and amphetamines, Head CT shows atrophy, no acute illness. Dx: Acute respiratory failure secondary to drugs intoxication. - Plan Plan: Patient is awake, already seen by Pulmonoloogy. Awaiting psychiatric consultation. PT eval is requested. Will continue to monitor.
[2017-02-13 09:05] LABS: pH 7.45 (7.35-7.45)
[2017-02-13 09:06] LABS: ABG SOURCE Arterial; ALLEN TEST PASS; BE(B) 6.4 mEq/L (-3.0-3.0); CRITICAL VALUES REPORTED BY PW; FIO2 32; HCO3 29.8 mEq/L (20.0-26.0)
[2017-02-13] MEDS: Thiamine 100 mg/mL 2mL Vial IM SCH (09:37)
--- NOTE | 2017-02-13 09:46 | Diagnostic Imaging Report ---
CHEST X-RAY: AP view INDICATION: Shortness of breath COMPARISON: 02/11/2017 FINDINGS: Congestive changes are seen with left basal density. Cardiomegaly is noted with atherosclerosis. IMPRESSION: Congestive changes with left basal density which may represent a small left effusion. Atelectasis versus infiltrate in this region is considered less likely. Cardiomegaly and atherosclerotic vascular disease.
[2017-02-13] MEDS: D5-0.9%NS 1,000 ML IV SCH (09:49)
[2017-02-14] MEDS: Albuterol/Ipratropium Neb 3 ML AERS HHN SCH ×4 (00:47→19:09)
--- NOTE | 2017-02-14 02:59 | Cardiology ---
02/13/[address] Maradiaga. M-MODE ECHOCARDIOGRAM: Mitral valve, anterior leaflet of the mitral valve shows normal excursion, EF velocity. Posterior leaflet of the mitral valve shows normal excursion. Left ventricular posterior wall shows increased thickness, normal excursion. Interventricular septum shows increased thickness, normal excursion, hypertrophy of the left ventricle, ejection fraction 50%. Left atrium enlarged 4.4 cm. Aortic root shows normal dimension, normal excursion of aortic leaflets. CONCLUSION: Hypertrophy of the left ventricle. Left atrial enlargement, ejection fraction 50%. 2D ECHOCARDIOGRAM: Long axis view showed normal sized left ventricle with hypertrophy of the left ventricle. Left atrium enlarged. Aortic root shows normal dimension, normal excursion of aortic leaflets. Short axis view of mitral valve normal. Short axis view of aortic valve normal. Apical four chamber view showed normal sized left ventricle with hypertrophy of the left ventricle. Left atrium enlarged. Right ventricular cavity, right atrium normal, no pericardial effusion, ejection fraction 50%. CONCLUSION: Hypertrophy of the left ventricle. Left atrial enlargement, ejection fraction 50%. Doppler study shows mild mitral regurgitation, tricuspid regurgitation, and aortic regurgitation. Right ventricular systolic pressure 18 mmHg, prominent A wave consistent with poor compliance of left ventricle. [facility]# [id number]
[2017-02-14] MEDS: D5-0.9%NS 1,000 ML IV SCH (04:39)
[2017-02-14 06:01] LABS: % BASOPHILS 0.2 % (0.0-2.0); % EOSINOPHILS 5.1 % (0.0-5.0); % LYMPHOCYTES 23.7 % (20.0-50.0); % MONOCYTES 10.5 % (2.0-10.0); % NEUTROPHILS 60.5 % (40.0-80.0); HEMATOCRIT 32.9 % (35.0-45.0); HEMOGLOBIN 11.2 gm/dL (11.7-16.1); MEAN CELL VOLUME 88.8 fl (81-100); MEAN CORPUSCULAR HEMOGLOBIN 30.3 pg (27.0-31.0); MEAN CORPUSCULAR HGB CONC 34.1 pg (28.0-36.0); MEAN PLATELET VOLUME 8.2 fl; NEUTROPHILE ABSOLUTE 3.3 Th/cmm (1.8-8.0); PLATELET COUNT 190 Th/cmm (150-400); RED BLOOD COUNT 3.71 Mil/cmm (3.80-5.20); RED CELL DISTRIBUTION WIDTH 15.3 % (11.5-20.0); WHITE BLOOD COUNT 5.5 Th/cmm (4.8-10.8)
[2017-02-14 06:29] LABS: ALB/GLOB RATIO 1.2 (1.0-1.8); ALKALINE PHOSPHATASE 66 U/L (34-104); BILIRUBIN,TOTAL 0.5 mg/dL (0.3-1.0); BUN - UREA NITROGEN 9 mg/dL (7-25); CALCIUM SERUM 9.4 mg/dL (8.6-10.3); CARBON DIOXIDE 28.7 mEq/L (21.0-31.0); CHLORIDE 104 mEq/L (98-107); CREATININE - SERUM 0.6 mg/dL (0.6-1.2); GLUCOSE 102 mg/dL (70-105); POTASSIUM SERUM 3.7 mEq/L (3.5-5.1); SGOT 26 U/L (13-39); SGPT/ALT 16 U/L (7-52); SODIUM SERUM 138 mEq/L (136-145)
[2017-02-14] MEDS: INSULIN ASPART SLIDING SCALE 100 UNITS/ML UNIT SUBQ SCH (06:41)
[2017-02-14] MEDS: Thiamine 100 mg/mL 2mL Vial IM SCH (08:15)
--- NOTE | 2017-02-14 08:47 | General Progress Note ---
Subjective - Review of Systems Service Date: 02/14/17 Subjective: I want go home Objective - Results Result Diagrams: 02/14/17 05:11 02/14/17 05:11 Recent Labs: Laboratory Last Values WBC 5.5 Th/cmm (4.8-10.8) 02/14/17 05:11 RBC 3.71 Mil/cmm (3.80-5.20) L 02/14/17 05:11 Hgb 11.2 gm/dL (11.7-16.1) L 02/14/17 05:11 Hct 32.9 % (35.0-45.0) L 02/14/17 05:11 MCV 88.8 fl (81-100) 02/14/17 05:11 MCH 30.3 pg (27.0-31.0) 02/14/17 05:11 MCHC Differential 34.1 pg (28.0-36.0) 02/14/17 05:11 RDW 15.3 % (11.5-20.0) 02/14/17 05:11 Plt Count 190 Th/cmm (150-400) 02/14/17 05:11 MPV 8.2 fl 02/14/17 05:11 Neutrophils % 60.5 % (40.0-80.0) 02/14/17 05:11 Lymphocytes % 23.7 % (20.0-50.0) 02/14/17 05:11 Monocytes % 10.5 % (2.0-10.0) H 02/14/17 05:11 Eosinophils % 5.1 % (0.0-5.0) H 02/14/17 05:11 Basophils % 0.2 % (0.0-2.0) 02/14/17 05:11 Specimen Source Arterial 02/13/17 08:45 Sample Site Left Radial 02/13/17 08:45 pH 7.45 (7.35-7.45) 02/13/17 08:45 pCO2 45.0 mmHg (35.0-45.0) 02/13/17 08:45 pO2 65.0 mmHg (80.0-100.0) L 02/13/17 08:45 HCO3 29.8 mEq/L (20.0-26.0) H 02/13/17 08:45 Base Excess 6.4 mEq/L (-3.0-3.0) H 02/13/17 08:45 O2 Saturation 93.0 % (92.0-100.0) 02/13/17 08:45 Ismael Test PASS 02/13/17 08:45 Vent Rate NA 02/11/17 10:04 Inspired O2 32 02/13/17 08:45 Tidal Volume NA 02/11/17 10:04 PEEP NA 02/11/17 10:04 Pressure (ins/psv/peep) NA 02/11/17 10:04 Critical Value PW 02/13/17 08:45 Sodium 138 mEq/L (136-145) 02/14/17 05:11 Potassium 3.7 mEq/L (3.5-5.1) 02/14/17 05:11 Chloride 104 mEq/L (98-107) 02/14/17 05:11 Carbon Dioxide 28.7 mEq/L (21.0-31.0) 02/14/17 05:11 Anion Gap 9.0 (7.0-16.0) 02/14/17 05:11 BUN 9 mg/dL (7-25) 02/14/17 05:11 Creatinine 0.6 mg/dL (0.6-1.2) 02/14/17 05:11 Est GFR ( Amer) > 60.0 ml/min (>90) 02/14/17 05:11 Est GFR (Non-Af Amer) > 60.0 ml/min 02/14/17 05:11 BUN/Creatinine Ratio 15.0 02/14/17 05:11 Glucose 102 mg/dL (70-105) 02/14/17 05:11 POC Glucose 113 MG/DL (70 - 105) H 02/14/17 05:45 Calcium 9.4 mg/dL (8.6-10.3) 02/14/17 05:11 Total Bilirubin 0.5 mg/dL (0.3-1.0) 02/14/17 05:11 AST 26 U/L (13-39) 02/14/17 05:11 ALT 16 U/L (7-52) 02/14/17 05:11 Alkaline Phosphatase 66 U/L (34-104) 02/14/17 05:11 Ammonia 40 umol/L (16-53) 02/10/17 09:35 Total Protein 6.7 gm/dL (6.0-8.3) 02/14/17 05:11 Albumin 3.6 gm/dL (3.7-5.3) L 02/14/17 05:11 Globulin 3.1 gm/dL 02/14/17 05:11 Albumin/Globulin Ratio 1.2 (1.0-1.8) 02/14/17 05:11 TSH 1.94 uIU/ml (0.34-5.60) 02/11/17 04:33 Urine Opiates Screen NEGATIVE (NEGATIVE) 02/10/17 13:28 Urine Methadone Screen NEGATIVE (NEGATIVE) 02/10/17 13:28 Ur Barbiturates Screen POSITIVE (NEGATIVE) H 02/10/17 13:28 Ur Tricyclics Screen NEGATIVE (NEGATIVE) 02/10/17 13:28 Ur Phencyclidine Scrn NEGATIVE (NEGATIVE) 02/10/17 13:28 Amphetamines Screen NEGATIVE (NEGATIVE) 02/10/17 13:28 U Methamphetamines Scrn NEGATIVE (NEGATIVE) 02/10/17 13:28 U Benzodiazepines Scrn POSITIVE (NEGATIVE) H 02/10/17 13:28 U Cocaine Metab Screen NEGATIVE (NEGATIVE) 02/10/17 13:28 U Cannabinoids Screen NEGATIVE (NEGATIVE) 02/10/17 13:28 Ethyl Alcohol < 10 mg/dL (0-10) 02/10/17 07:25 - Physical Exam Vitals and I&O: Vital Signs Temp 98.7 F 02/14/17 04:00 Pulse 85 02/14/17 07:05 Resp 18 02/14/17 07:05 BP 145/70 02/14/17 04:00 Pulse Ox 95 02/14/17 07:05 Intake & Output 02/13/17 02/14/17 02/14/17 18:59 06:59 18:59 Intake Total 1000 1150 Balance 1000 1150 Intake: Intake, IV Amount 1000 1000 D5-0.9%Ns 1,000 ml @ 75 1000 1000 mls/hr IV .[id number] [facility] Rx #:[id number] Oral 150 Other: # Voids 2 # Bowel Movements 0 Active Medications: Current Medications Acetaminophen (Tylenol) 650 mg PO Q6H PRN PRN Reason: Pain or Fever >101 Stop: 04/11/17 09:42 Last Admin: 02/11/17 10:09 Dose: 650 mg Albuterol/Ipratropium (Duoneb Neb) 3 ml HHN Q6HRT [facility] Stop: 04/12/17 18:59 Last Admin: 02/14/17 07:05 Dose: 3 ml Escitalopram Oxalate (Lexapro) 10 mg PO DAILY [facility] PRN Reason: Protocol Stop: 04/15/17 08:59 Last Admin: 02/14/17 08:15 Dose: 10 mg Heparin Sodium (Porcine) (Heparin) 5,000 units SUBQ Q12HR [facility] Stop: 04/11/17 20:59 Last Admin: 02/14/17 08:15 Dose: 5,000 units Dextrose/Sodium Chloride (D5-0.9%Ns) 1,000 mls @ 75 mls/hr IV .[id number] [facility] Stop: 04/12/17 09:03 Last Admin: 02/14/17 04:39 Dose: 75 mls/hr Insulin Aspart (Novolog Insulin Sliding Scale) 0 units SUBQ ACHS [facility] PRN Reason: Protocol Stop: 04/12/17 11:29 Last Admin: 02/14/17 06:41 Dose: Not Given Lorazepam (Ativan) 1 mg IVP Q6HR PRN; Protocol PRN Reason: Agitation Stop: 04/12/17 22:19 Last Admin: 02/14/17 00:45 Dose: 1 mg Lorazepam (Ativan) 0.5 mg PO Q4HR PRN; Protocol PRN Reason: Anxiety Stop: 04/14/17 18:06 Lorazepam (Ativan) 0.5 mg PO TID [facility] PRN Reason: Protocol Stop: 04/14/17 20:59 Last Admin: 02/14/17 08:15 Dose: 0.5 mg Miscellaneous (Vte Chemical Prophylaxis Screen/ Admission) 1 ea [facility] PRN PRN PRN Reason: PROTOCOL Stop: 04/11/17 12:44 Ondansetron HCl (Zofran) 4 mg IV Q6H PRN PRN Reason: Nausea / Vomiting Stop: 04/11/17 09:42 Quetiapine Fumarate (Seroquel) 25 mg PO HS [facility] PRN Reason: Protocol Stop: 04/12/17 20:59 Last Admin: 02/13/17 20:36 Dose: 25 mg Thiamine HCl (Vitamin B1) 100 mg IM DAILY [facility] Stop: 04/12/17 11:44 Last Admin: 02/14/17 08:15 Dose: 100 mg General: Alert, Cooperative, No acute distress HEENT: Atraumatic Neck: Supple Cardiovascular: Regular rate Lungs: Clear to auscultation Abdomen: Bowel sounds Extremities: Other (No edema) Neurological: Other (Unstable gait) Skin: Other (Warm and dry) Psych/Mental Status: Other (Patient is awake, confused.) - Procedures Procedures: Procedures Procedure Code Date ASSISTANCE WITH RESPIRATORY VENTILATION, <24 HRS, CPAP [id number] 02/10/17 POS AIRWAY PRESSURE CPAP 85358 02/10/17 Assessment/Plan - Assessment Assessment: Patient is awake, alert, calm, in no acute distress. Positive for barbituric and amphetamines, Head CT shows atrophy, no acute illness. Dx: Acute respiratory failure secondary to drugs intoxication. - Plan Plan: Patient is awake, already seen by Pulmonoloogy, and Psychiatry. Echo shows Left ventricular hyperthophy and 50% ejection fraction. Will continue to monitor.
--- NOTE | 2017-02-14 09:49 | Consultation ---
DATE OF CONSULTATION: 02/12/[address] Maradiaga. HISTORY AND PHYSICAL: This is a 66-year-old female patient, who was brought into the Emergency Room due to alcohol intoxication. The patient had respiratory problems. The patient was treated with BiPAP. During the hospital stay, cardiac consult was requested as the patient had been complaining of sharp pain in the chest. No history of PND or orthopnea. PAST MEDICAL HISTORY: The patient has a history of alcoholic addict, polysubstance abuse. FAMILY HISTORY: Unremarkable. SOCIAL HISTORY: The patient has a history of alcohol abuse and polysubstance abuse. ALLERGIES: None. PHYSICAL EXAMINATION: VITAL SIGNS: Blood pressure 130/80, pulse 100, respirations 28. HEAD: Normocephalic. No lumps or bumps. EYES: Pupils are equal and reactive to light. Fundi show AV nicking, sclerae white, conjunctivae pink. NECK: Carotid 2+. Normal upstroke. JVD flat. Thyroid not palpable. Lymph nodes not palpable. CHEST: Shows increased AP diameter. No kyphosis, scoliosis. LUNGS: Bilateral bronchovesicular breath sounds. HEART: PMI fifth intercostal space with lateral to midclavicular line. S1, S2. No S3, S4. Systolic murmur, grade 2/6, lower left sternal border without radiation. ABDOMEN: Soft. Liver and spleen are not palpable. No organomegaly. Bowel sounds active. NEUROLOGIC: No focal neurological deficit. EXTREMITIES: Peripheral pulses 2+. No pedal edema. CLINICAL IMPRESSION: 1. Acute respiratory failure, on BiPAP. 2. Alcohol intoxication. 3. Alcohol dependence. 4. Polysubstance abuse. PLAN: Admit the patient. We will have pulmonary consult. Echocardiogram showed hypertrophy of the left ventricle, mild aortic regurgitation and tricuspid regurgitation, ejection fraction of 50%. JOB# [id number]
--- NOTE | 2017-02-14 18:31 | Consultation ---
DATE OF CONSULTATION: 02/13/2017 The patient was seen, chart reviewed, discussed with staff. Sister was by the bedside, also close friend. HISTORY OF PRESENT ILLNESS: The patient is a 66-year-old female with chronic history of depression, anxiety, alcoholism, was found with altered mental status, now on medical floor. The patient has been hallucinating mostly yesterday, is somewhat confused. The patient has been feeling depressed and anxious and reporting some suicidal thoughts, but she feels safe now she is in the hospital. The patient was feeling that there was bugs crawling out of her skin. Apparently she has been drinking for at least 4-5 days prior to admission in heavy amounts. PAST PSYCHIATRIC HISTORY: Multiple hospitalizations, history of depression, anxiety. PAST MEDICAL HISTORY: Deferred to Dr. Maradiaga's [facility]. 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 She lives with 2 cats. Sister lives in ____ and she flew down to check on the patient. The patient with extensive alcohol use, and she used to go to AA meetings, was sober for a few months. MENTAL STATUS EXAMINATION: The patient is cooperative in bed, made fair eye contact, oriented to person, knew she was in the hospital, thought it was January 2017. The patient has some difficulty recalling, appears to be confused a little bit at times. The patient is having severe anxiety and she appears to be depressed. ASSESSMENT: Major depressive disorder, recurrent, severe alcohol dependence. PLAN: At this time, I would recommend continuation of medical and supportive measures, continue Seroquel 25 mg p.o. at bedtime. The patient will be given Ativan 0.5 mg p.o. t.i.d. for the next 2-3 days to help ease her detoxification symptoms and withdrawal symptoms. Inpatient psychiatric hospitalization is highly recommended, the patient is in agreement, also is very supportive. We will follow the patient while in the hospital. Thank you for the consultation. JOB# [id number]
[2017-02-15] MEDS: Albuterol/Ipratropium Neb 3 ML AERS HHN SCH ×4 (00:30→18:52)
[2017-02-15 05:54] LABS: % BASOPHILS 0.4 % (0.0-2.0); % EOSINOPHILS 8.6 % (0.0-5.0); % LYMPHOCYTES 27.3 % (20.0-50.0); % MONOCYTES 13.3 % (2.0-10.0); % NEUTROPHILS 50.4 % (40.0-80.0); HEMATOCRIT 32.1 % (35.0-45.0); HEMOGLOBIN 10.7 gm/dL (11.7-16.1); MEAN CELL VOLUME 89.8 fl (81-100); MEAN CORPUSCULAR HGB CONC 33.3 pg (28.0-36.0); NEUTROPHILE ABSOLUTE 2.2 Th/cmm (1.8-8.0); PLATELET COUNT 192 Th/cmm (150-400); RED BLOOD COUNT 3.57 Mil/cmm (3.80-5.20); RED CELL DISTRIBUTION WIDTH 15.3 % (11.5-20.0); WHITE BLOOD COUNT 4.4 Th/cmm (4.8-10.8)
[2017-02-15 06:10] LABS: ALB/GLOB RATIO 1.3 (1.0-1.8); ALKALINE PHOSPHATASE 60 U/L (34-104); ANION GAP 8.4 (7.0-16.0); BILIRUBIN,TOTAL 0.4 mg/dL (0.3-1.0); BUN - UREA NITROGEN 10 mg/dL (7-25); BUN/CREATININE RATIO 16.7; CALCIUM SERUM 9.2 mg/dL (8.6-10.3); CARBON DIOXIDE 28.5 mEq/L (21.0-31.0); CHLORIDE 106 mEq/L (98-107); CREATININE - SERUM 0.6 mg/dL (0.6-1.2); GLUCOSE 101 mg/dL (70-105); POTASSIUM SERUM 3.9 mEq/L (3.5-5.1); SGOT 22 U/L (13-39); SGPT/ALT 16 U/L (7-52); SODIUM SERUM 139 mEq/L (136-145)
[2017-02-15] MEDS: Thiamine 100 mg/mL 2mL Vial IM SCH (08:55)
[2017-02-16] MEDS: Albuterol/Ipratropium Neb 3 ML AERS HHN SCH ×3 (01:56→13:10)
[2017-02-16] MEDS: Thiamine 100 mg/mL 2mL Vial IM SCH (09:45)
--- NOTE | 2017-02-16 09:54 | Progress Notes ---
DATE: 02/15/2017 SUBJECTIVE: The patient was seen, discussed with staff. She is feeling depressed, anxious, still somewhat confused, irritable. The patient is oriented to person, knew she was in the hospital. The patient talked about her alcohol . The patient continues to have episodes of intense helplessness and some suicidal thoughts. ASSESSMENT: The patient would require psychiatric hospitalization given her extensive history. PLAN: We will continue current dose of Lexapro. We will monitor closely, detoxification symptoms appear to be subsiding down. The patient , lorazepam would be tapered down gradually. JOB# [id number]
--- NOTE | 2017-02-27 23:30 | Discharge Summary ---
DATE OF DISCHARGE: 02/16/2017 CHIEF COMPLAINT: Change in mental status. HISTORY OF PRESENT ILLNESS: This is the case of a 66-year-old white female who was brought by paramedics to the Emergency Room secondary to the patient had altered mental status. According to the friend, the patient had been drinking too much and started to have altered mental status. The patient was hospitalized for that reason. HOSPITAL COURSE AND TREATMENT: Then, she was hospitalized. She was started on IV banana bag. She was started on regular diet. Head CT scan was done. She received Ativan and consult with Psychiatry was requested and recommendations were followed. At the beginning, the patient became positive for benzodiazepines and amphetamine. After a few days, the patient little by little was started to be more awake until became fully awake. The patient received consultation by Psychiatry and recommendations were followed. With this treatment and after discussing with Psychiatry, it was considered that the patient received the maximum benefits of hospitalization and she could be sent home to continue treatment with primary care physician. At the moment of the discharge, the patient was awake, alert, in no acute distress. ASSEM[employer]ER FLEXIBLE LEADS ON THIS CASE: Dr. Dahl, Psychiatry. DISPOSITION: The patient is sent home with sister to continue treatment with primary care physician. DIAGNOSES: Acute alcohol and drug intoxication. JOB# [id number]
== END 2017-02-16 15:00 | disposition home or self-care (01) | DRG 917 ==
LOC: ER 21:25 → MSI 02-10 07:15 → TELE 02-10 09:00 → MSI 02-14 16:31
PROVIDERS: ADMIT General Practice; ATTEND General Practice
PROC: 5A09357 Assistance with Respiratory Ventilation, Less than 24 Consecutive Hours, Continuous Positive Airway Pressure (ICD-10-PCS; principal; 2017-02-11)
DX: T43.621A Poisoning by amphetamines, accidental (unintentional), initial encounter (principal); J96.00 Acute respiratory failure, unspecified whether with hypoxia or hypercapnia; F33.2 Major depressive disorder, recurrent severe without psychotic features; F15.129 Other stimulant abuse with intoxication, unspecified; F13.129 Sedative, hypnotic or anxiolytic abuse with intoxication, unspecified; I10 Essential (primary) hypertension; T50.995A Adverse effect of other drugs, medicaments and biological substances, initial encounter; Y92.89 Other specified places as the place of occurrence of the external cause; G47.33 Obstructive sleep apnea (adult) (pediatric); F41.9 Anxiety disorder, unspecified; Z87.891 Personal history of nicotine dependence
CPT/HCPCS: 36415-UA; 36600-90; 70450-TC; 71010-TC; 80048-TC; 80053-TC; 80307; 80320-TC; 82140-TC; 82803-TC; 82948-90; 84443-TC; 85025-TC; 94660; 94760; 97530; J1644; J1815; J2060; J2405; J3411; J3475; J7030; J7042; X3904; X6598; Z7610